=== PATIENT | female | born 1950 | race Caucasian/White ===

== ENCOUNTER 2016-12-01 11:05 | Observation (INO) ==
[2016-12-01] MEDS ORDERED: MORPHINE 2 MG/1 ML SYRINGE IV PRN (11:36)
[2016-12-01] MEDS ORDERED: ASPIRIN 325 MG TABLET PO STA (11:36)
[2016-12-01] MEDS ORDERED: NITROGLYCERIN SL 0.4 MG TABLET SL PRN (11:36)
[2016-12-01] MEDS ORDERED: ENOXAPARIN 100 MG/ML SYRINGE SUBCUT STA (11:36)
[2016-12-01] MEDS ORDERED: ALUM/MAG/SIMETH/LIDO VISC 1:1 30 ML BOTTLE PO STA (11:36)
[2016-12-01] MEDS ORDERED: ONDANSETRON 4 MG/2 ML VIAL IV PRN ×2 (11:36→15:53)
[2016-12-01] MEDS ORDERED: NITROGLYCERIN 2% OINT 1 INCH/GM PACK TOP STA (11:36)
[2016-12-01] MEDS ORDERED: ENOXAPARIN 120 MG/0.8 ML SYRINGE SUBCUT ONE (11:50)
[2016-12-01] MEDS ORDERED: NITROGLYCERIN 2% OINT 1 INCH/GM PACK TOP ONE (11:50)
--- NOTE | 2016-12-01 11:50 | Emergency Department Note ---
Siri Brown Brittany, am scribing for, and in the presence of, Get Osorio MD 11: 42. Jo Brown James D, MD, personally performed the services described in this documentation, ascribed by Mary Jo Horner in my presence, and it is both accurate and complete . Arrival - Arrival Chief Complaint: Chest Pain Stated Complaint: chest pain ED Nursing Triage Note: pain in center of chest that radiates into her back that started last night. pain is worse when she tries to lay down. reports she could feel some palpitations Mode of Arrival: Ambulatory Limitations: No Limitations Source: Patient, RN Notes Reviewed - History of Present Illness HPI Narrative: This is a 66 y/o whitefemale,who presents to the Ed with c/o CP which started last night. She reports the pain moves into her back. She reports the chest pain is worse when laying down. She states she has had palpations. She reports the CP is not associated with exertion. She denies any SOB, nausea, or diaphoresis, but notes a dry cough. She states her PCP is Dr. Patricia Salazar. Pt has no other complaints/pain in the ED at this time. Pt has a PMHx of HTN, low platelets, and dyslipidemia. Pt denies a surgical hx. Pt has a family medical hx of heart disease, HTN, and diabetes. Pt denies a social Hx. Onset (ago): hour(s) (Started last night) Consistency: constant Severity: moderate Allergies/Adverse Reactions: Allergies Allergy/AdvReac Type Severity Reaction Status Date / Time No Known Allergies Allergy Unverified 09/01/16 11:54 Home Medications: Home Medications Medication Instructions Recorded Confirmed Type Atenolol 25 mg PO DAILY 12/01/16 12/01/16 History Estradiol Tab [Estrace Tab] 2 mg PO DAILY 12/01/16 12/01/16 History Gemfibrozil [Lopid] 600 mg PO BID 12/01/16 12/01/16 History Loratadine Tab [Claritin Tab] 10 mg PO DAILY 12/01/16 12/01/16 History Omeprazole [Prilosec] 20 mg PO DAILY 12/01/16 12/01/16 History amLODIPine [Norvasc] 10 mg PO DAILY 03/27/17 03/27/17 History Review of System - Review of System 12 point system: reviewed and no additional remarkable complaints except as stated - Review of System Constitutional: Absent: diaphoresis Respiratory: Present: cough (Drry cough) Cardiovascular: Present: chest pain, palpitations, orthopnea Gastrointestinal: Absent: nausea Medical,Surgical,& Family Hx - Medical History Cardio: History of: Hypertension Endocrine: History of: Dyslipidemia Other: History of: Miscellaneous Medical Problems (low platelets) - Family History Family History: Reports;: Family Diabetes, Family Heart Disease, Family Hypertension, Family Stroke - Social History Smoking Status: Never smoker Exam Vital Signs: Vital Signs Temperature 97.5 F L 12/01/16 11:16 Pulse Rate 69 12/01/16 11:16 Respiratory Rate 18 12/01/16 11:16 Blood Pressure 161/96 12/01/16 11:16 O2 Sat by Pulse Oximetry 100 12/01/16 11:16 GENERAL: This is a well-nourished well-developed white female in no apparent distress. VITAL SIGNS: Reviewed HEENT: Head is atraumatic and normocephalic. Pupils are equal round react to light. Extraocular movements are intact. Oropharynx is benign with moist mucous membranes. NECK: Neck is soft and supple without tenderness. There are no masses. There is no lymphadenopathy. LUNGS: Lungs are clear to auscultation. Chest rises symmetrically. There is no chest wall tenderness. CV: Heart is regular rate and rhythm without murmurs rubs or gallops. ABDOMEN: Abdomen is soft, nontender to palpation. There are no abdominal abnormal masses palpated. There is no organomegaly. Bowel sounds are present and active. SKIN: Skin is warm and dry. No rash. EXTREMITIES: Patient has full range of motion without tenderness. There is no pedal edema. NEUROLOGIC: Awake alert and oriented 4. Cranial nerves II through XII are grossly intact. Motor is 5 over 5 in all extremities bilaterally. Course - Consultations Consultation #1: Discussed with Dr. Patricia Salazar. Patient will be admitted to her service. Time: 14:25 Results - Labs CBC & BMP: 12/01/16 11:39 12/01/16 11:39 Lab Results: I have reviewed the patients labs Labs: Laboratory Tests 12/01/16 11:39 Troponin I < 0.015 - EKG EKG results: interpreted by ERMD - Impressions EKG: Normal sinus rhythm with a rate of 69, low voltage QRS, normal ST-T waves, normal axis. - Diagnostic Findings Procedure: Chest x-ray: image reviewed by me (No cardiomegaly, no pleural effusions, no infiltrates) Disposition Clinical Impression: Chest pain, Essential hypertension Case discussed with: patient Disposition: Still a Patient Condition: Stable
[2016-12-01] MEDS ORDERED: ALUM/MAG/SIMETH/LIDO VISC 1:1 30 ML BOTTLE PO ONE (11:51)
[2016-12-01] MEDS ORDERED: ASPIRIN 325 MG TABLET ONE (11:51)
[2016-12-01 11:56] LABS: Basophils # 0.1 10*3/uL (0.0-0.2); Basophils % 0.5 % (0.0-0.8); Eosinophils # 0.2 10*3/uL (0.0-0.87); Hematocrit 40.2 VOL% (35.7-47.0); Hemoglobin 13.6 GM/DL (12.0-16.0); Immature Granulocytes % 0.5 %; Immature Granulocytes Absolute 0.05 #; Lymphocytes # 3.4 10*3/uL (1.4-4.0); Lymphocytes % 35.6 % (21.3-54.2); Mean Corpuscular HGB Conc 33.8 GM/DL (32-36); Mean Corpuscular Hemoglobin 29 PG (27-34); Mean Corpuscular Volume 85.7 FL (87-102); Mean Platelet Volume 11.2 FL (9.6-12.0); Monocytes # 0.7 10*3/uL (0.11-0.8); Monocytes % 7.2 % (1.7-12.7); Neutrophils # 5.2 10*3/uL (1.4-7.4); Neutrophils % 54.2 % (38.7-73.9); Platelet Count 139 T/CUMM (130-400); Red Blood Count 4.69 MC/CUMM (3.8-5.5); Red Cell Distribution Width 13.2 % (9.3-17.3); White Blood Count 9.6 T/CUMM (4-12)
--- NOTE | 2016-12-01 12:03 | XRay Report ---
XR chest 2V Indication: Chest pain. Chest 2 views: Comparison 02/20/2010. The heart size and mediastinal contour are normal. The lungs and pleural spaces are clear. Bones are unremarkable. Impression: Negative chest. PROCEDURE INTERPRETED AT [facility] DEPARTMENT OF RADIOLOGY Final Report Signed by: Song Mon M.D.
[2016-12-01 12:07] LABS: PT Patient Result 10.2 SECS; Partial Thromboplastin Time 27.3 SECS (0-40)
[2016-12-01 12:27] LABS: Alanine Aminotransferase 17 U/L (13-56); Albumin 3.6 G/DL (3.4-5.0); Alkaline Phosphatase 80 U/L (45-117); Aspartate Amino Transferase 12 U/L (0-37); Bilirubin,Total < 0.39 MG/DL (0.2-1.0); Blood Urea Nitrogen 15 MG/DL (7-18); Calcium 9.1 MG/DL (8.5-10.1); Glucose 99 MG/DL (74-106); Osmolality,Calculated 283.1 MOS/KG (273-304); Potassium 4.3 MMOL/L (3.5-5.1); Sodium 142 MMOL/L (136-145); Total Protein 7.2 G/DL (6.4-8.3)
[2016-12-01] MEDS ORDERED: INFLUENZA VIRUS VACCINE 0.5 ML SYRINGE IM ONE (16:01)
[2016-12-01] MEDS: SODIUM CHLORIDE 0.9% 1,000 ML IV SCH (17:31)
[2016-12-01] MEDS: ACETAMINOPHEN 325 MG TABLET PO PRN (17:34)
--- NOTE | 2016-12-01 18:32 | Internal Med History&Physical ---
Assessment and Plan (1) Acid indigestion Status: Acute Current Visit: Yes (2) Essential hypertension Status: Chronic Current Visit: Yes (3) Atypical chest pain Status: Acute Current Visit: Yes History of Present Illness Chief complaint: chest pain History of present illness: Ms. Rose is a 66 year old female with history of HTN, acid reflux, dyslipidemia, chronic leg pain, Vit D deficiency, thrombocytopenia, who presented to ER with acute low and mid sternal chest pain with radiation to her thoracic back that occurred acutely last night and continued until this morning. She had eaten some spicy sausage last night prior to the event. She has history of acid reflux. Will consult Dr. Chavira to further investigate. Her pain was significant enough to come to ER. However, she has significant family history of CAD to include a sibling status post CABG with 4 vessel disease. Her mother has history of PR. The patient has never had a cardiac catheterization, but she has had chest pain on a number of occasions, attributed to acid indigestion. Dr. Junior has been consulted to further evaluate. Also, the patient has complained of chronic leg pain. Multiple attempts of various meds have not helped. Vit D replacement has not helped. Home Medications Medication Instructions Recorded Confirmed Type Atenolol 25 mg PO DAILY 12/01/16 12/01/16 History Estradiol Tab [Estrace Tab] 2 mg PO DAILY 12/01/16 12/01/16 History Gemfibrozil [Lopid] 600 mg PO BID 12/01/16 12/01/16 History Loratadine Tab [Claritin Tab] 10 mg PO DAILY 12/01/16 12/01/16 History Omeprazole [Prilosec] 20 mg PO DAILY 12/01/16 12/01/16 History amLODIPine [Norvasc] 10 mg PO DAILY 12/01/16 12/01/16 History Allergies Allergy/AdvReac Type Severity Reaction Status Date / Time No Known Allergies Allergy Unverified 09/01/16 11:54 Medical,Surgical,& Family Hx - Medical History Cardio: History of: Hypertension Endocrine: History of: Dyslipidemia Gastrointestinal: History of: GERD Other: History of: Miscellaneous Medical Problems (thrombocytopenia) - Surgical History HEENT Surgeries: Surgical HX of: Tonsilectomy & Adenoidectomy Abdominal Surgeries: Surgical HX of: Cholecystectomy Reproductive Surgeries: Surgical HX of;: Hysterectomy Orthopedic Surgeries: Surgical HX of;: Orthopedic Surgery (ORIF left ankle) - Family History Family History: Reports;: Family Diabetes, Family Heart Disease, Family Hypertension, Family Stroke - Social History Smoking Status: Never smoker Frequency of Alcohol Use: None Type of Drug Use: None Marital Status: Lives With:: Spouse Functional capacity: independent ambulation - Cardiovascular Cardiovascular: Present: chest pain at rest, other (radiating to thoracic back) - Gastrointestinal Gastrointestinal: Present: abdominal pain (epigastric), dyspepsia Exam - Constitutional Vitals: Period Temp Pulse Resp BP Sys/Damon Pulse Ox Last 24 Hr 97.8 F 63-66 17-18 130-154/73-79 95-98 General appearance: no acute distress - Head Head exam: Present: normocephalic - Eye Eye exam: Present: EOMI - Respiratory Respiratory exam: Present: clear to auscultation bilaterally. Absent: rales, rhonchi, wheezes - Cardiovascular Cardiovascular exam: Present: regular rate and rhythm - GI/Abdominal GI/Abdominal exam: Present: normal bowel sounds, soft. Absent: tenderness - Extremities Exam Extremities exam: Absent: edema - Neurological Exam Neurological exam: Present: alert, oriented X3, CN II-XII intact - Psychiatric Psychiatric exam: Present: normal affect, normal mood - Skin Skin exam: Present: warm, dry Results - Labs CBC & BMP: 12/01/16 11:39 12/01/16 11:39 - EKG EKG shows: sinus rhythm - Diagnostic Findings Procedure: Chest x-ray: report reviewed by me (unremarkable)
[2016-12-01] MEDS: DOCUSATE SODIUM 100 MG CAPSULE PO SCH (20:59)
[2016-12-02] MEDS: SODIUM CHLORIDE 0.9% 1,000 ML IV SCH ×4 (01:15→23:59)
[2016-12-02 04:43] LABS: Calcium 8.9 MG/DL (8.5-10.1); Magnesium 2.3 MG/DL (1.8-2.4); Potassium 4.2 MMOL/L (3.5-5.1)
[2016-12-02 04:45] LABS: Troponin I Only < 0.015 NG/ML (0.00-0.045)
--- NOTE | 2016-12-02 05:59 | EKG Report ---
Stationary ECG Study [facility] ER Test Date: 12/01/2016 11:25:21 AM Pat Name: AYE DOCKERY Department: Room: 262 Gender: F Heater Helper: : 1950 Requested by: Ck Jara Order Number: [id number] Jennifer MD: CHARLY KOROMA Intervals [place] Rate: 69 P: 32 IL: 172 QRS: -10 QRSD: 106 T: 47 QT: 393 QTc: 413 Interpretive Statements SINUS RHYTHM LOW QRS VOLTAGE IN CHEST LEADS CONSISTENT WITH PULMONARY DISEASE Electronically Signed On 12-02-16 12:16:13 CDT by CHARLY KOROMA [email or web address]
--- NOTE | 2016-12-02 07:46 | EKG Report ---
Stationary ECG Study [facility] Test Date: 12/01/2016 6:06:03 PM Pat Name: AYE DOCKERY Department: Room: 262 Gender: F Adobe Developer: [place] : 1950 Requested by: Get Yi Order Number: [id number] Jennifer MD: CHARLY KOROMA Intervals [place] Rate: 70 P: 151 DC: 177 QRS: 208 QRSD: 105 T: 130 QT: 404 QTc: 425 Interpretive Statements SINUS RHYTHM ARM LEADS REVERSED ATYPICAL ECG Electronically Signed On 12-02-16 12:23:11 CDT by CHARLY KOROMA [email or web address]
--- NOTE | 2016-12-02 07:48 | Cardiology Consult Note ---
<Deana Rodriguez - Last Filed: 12/02/16 07:48> Assessment and Plan - Time spent with patient Time spent with patient: Greater than 30 minutes (1) Dyslipidemia Status: Chronic Assessment and plan: See plan of care listed below Current Visit: Yes (2) Obesity Status: Chronic Assessment and plan: See plan of care listed below Current Visit: Yes (3) Family history of premature CAD Status: Chronic Assessment and plan: See plan of care listed below Current Visit: Yes (4) Chest pain Status: Acute Assessment and plan: See plan of care listed below Current Visit: Yes (5) Essential hypertension Status: Chronic Assessment and plan: See plan of care listed below Current Visit: Yes History of Present Illness - Data of Consult Patient: new to practice Consult date: 12/02/16 Requesting Physician: Patricia Salazar Primary care physician: Patricia Salazar - Consult Narrative Reason for consult: chest pain, family history of premature CAD History of present illness: Ms. Rose is a 66 year old female never previously followed by cardiology. Risk factors include: Hypertension, dyslipidemia, obesity, family history of premature coronary artery disease. Patient was in her usual state of health until Thursday evening around 8 PM. She had been eating sausage when, approximately 5 minutes later, she began to experience a sharp chest pain in the mid, lower chest area which radiated through her chest to her right shoulder blade, throat. She felt as if she want to belch. This was not associated with shortness of breath, chest pain, nausea or vomiting. She had never experienced this type of discomfort before. It was consistent throughout the night and therefore she felt as if she should be evaluated in the emergency department at [facility]. She obtained relief when she received a GI cocktail. It has not reoccurred. She read the discomfort as a 7 on a scale of 1-10. She is currently chest pain- free. Cardiac biomarkers negative, EKG is unremarkable. 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 She can usually perform these activities without chest pain, heaviness, tightness or shortness of breath. She had a brother and sister who experienced her initial diagnosis of CAD in their late 40s and early 50s. She has never had a stress test, cardiac catheterization or cardiac workup. At one point, several years ago, she was scheduled for stress testing. However, she was found to have cholelithiasis prior to the stress test and never completed stress testing. Dr. Chavira has been consulted and she tells me she is n.p.o. She has had an EGD many years ago and received favorable results. At this point, I will add a d-dimer in a fasting lipid profile to her labs this morning. Will discuss with Dr. Glenda Junior. At some point, possibly outpatient, patient will need stress testing with such a significant family history of premature coronary artery disease. Patient does snore per but he does not hear abnormal sounds or gasping for air, holding of her breath. Malampati Airway Class III, neck circumference > 44cm. May eventually need outpatient sleep study. ASSESSMENT/PLAN: 1. CHEST PAIN -cardiac biomarkers are negative, EKG unremarkable. Eventually , patient would benefit from stress testing. Add d-dimer to lab draw this morning. 2. HYPERTENSION -patient reports good control. Will adjust medications accordingly during the hospital stay 3. DYSLIPIDEMIA -ordering fasting lipid profile this morning. 4. FAMILY HISTORY OF PREMATURE CAD -continue current plan of care 5. OBESITY - dietary counseling prior to discharge. CC: Patricia Salazar, DO - Home Medications and Allergies Home Medications: Home Medications Medication Instructions Recorded Confirmed Type Atenolol 25 mg PO DAILY 12/01/16 12/01/16 History Estradiol Tab [Estrace Tab] 2 mg PO DAILY 12/01/16 12/01/16 History Gemfibrozil [Lopid] 600 mg PO BID 12/01/16 12/01/16 History Loratadine Tab [Claritin Tab] 10 mg PO DAILY 12/01/16 12/01/16 History Omeprazole [Prilosec] 20 mg PO DAILY 12/01/16 12/01/16 History amLODIPine [Norvasc] 10 mg PO DAILY 12/01/16 12/01/16 History Allergies/Adverse Reactions: Allergies Allergy/AdvReac Type Severity Reaction Status Date / Time No Known Allergies Allergy Unverified 09/01/16 11:54 Review of systems: REVIEW OF SYSTEMS: - Constitutional Constitutional: Present: Fatigue. Absent: syncope, anorexia, night sweats - EENT Eyes: Absent: blurry vision, loss of vision, diplopia Ears: Absent: decreased hearing, ear pain, ear discharge - Cardiovascular Cardiovascular: Denies chest pain with exertion, dyspnea on exertion, edema, palpitations. Absent: chest pain with deep breath, claudication - Respiratory Respiratory: Denies FREIRE, cough. Absent: wheezing, hemoptysis, change in phlegm color - Gastrointestinal Gastrointestinal: Present: constipation. Absent: adbominal pain, hematemesis , hematochezia, melena, change in bowel habits, nausea - Genitourinary Genitourinary: Absent: difficulty urinating, dysuria, urinary hesitancy, flank pain - Musculoskeletal Musculoskeletal: Present: back pain Absent: joint swelling, muscle cramps, muscle weakness - Neurological Neurological: Present: normal gait without frequent falls. Absent: dizziness, hemiparesis - Psychiatric Psychiatric: Absent: anxiety, depression, difficulty concentrating - Endocrine Endocrine: Present: fatigue. Absent: cold intolerance, heat intolerance, polyuria, polyphagia, polydipsia - Hematologic/Lymphatic Hematologic/Lymphatic: Present: easy bruising. Absent: easy bleeding -Integumentary Integumentary: Absent: lesions, rashes, skin breakdown Medical,Surgical,& Family Hx - Medical History Cardio: History of: Hypertension No history of: CAD, VA, Cardiovascular Problems Endocrine: History of: Dyslipidemia Gastrointestinal: History of: GERD Other: History of: Miscellaneous Medical Problems (thrombocytopenia) - Surgical History HEENT Surgeries: Surgical HX of: Tonsilectomy & Adenoidectomy Abdominal Surgeries: Surgical HX of: Cholecystectomy Reproductive Surgeries: Surgical HX of;: Hysterectomy Orthopedic Surgeries: Surgical HX of;: Orthopedic Surgery (ORIF left ankle) - Family History Family History: Reports;: Family Diabetes, Family Heart Disease, Family Hypertension, Family Stroke - Social History Smoking Status: Never smoker Frequency of Alcohol Use: None Type of Drug Use: None Marital Status: Lives With:: Spouse Functional capacity: independent ambulation Physical Examination Vital Signs Temp Pulse Resp BP Pulse Ox 97.5 F L 69 18 161/96 100 12/01/16 11:16 12/01/16 11:16 12/01/16 11:16 12/01/16 11:16 12/01/16 11:16 General: [Appears well with no apparent distress.] [Pleasant and cooperative. ] [Appears comfortable.] HEENT: [PERRL, normocephalic, atraumatic. Mucous membranes moist. No jaundice noted. Conjunctiva moist and clear, sclerae anicteric] Neck: No JVD/HJR, no thyromegaly or lymphadenopathy noted. No carotid bruit appreciated Cardiac: [Regular rate and rhythm.] [No murmur rub or gallop.] Lungs: [Clear to auscultation without accessory muscle use to assist the respiratory pattern.] Not requiring oxygen Abdomen: Soft, bowel sounds normoactive. Nontender and nondistended. No abdominal bruit or thrill noted. No masses noted. Musculoskeletal: No fluid collection. Decreased range of motion is noted. Extremities: No clubbing, cyanosis noted. [ No edema noted.] Upper extremity pulses 2+. Lower extremity pulses 2+. Capillary refill less than 3 seconds. Skin: No unusual lesions or rashes. No skin breakdown appreciated. Neuro: Awake, alert and oriented 3. Moves all extremities well without hemiparesis or paralysis. No essential tremor is appreciated. Result/EKG - Labs CBC & BMP: 12/01/16 11:39 12/02/16 03:18 Lab Results: I have reviewed the past 24 hour labs Labs: Laboratory Results - last 24 hr 12/01/16 12/01/16 12/02/16 16:21 19:07 03:18 Sodium 143 Potassium 4.2 Chloride 108 H Carbon Dioxide 26 Anion Gap 13.2 BUN 15 Creatinine 0.80 GFR Calculation 97 BUN/Creatinine Ratio 18.00 Glucose 101 Calculated Osmolality 285.0 Calcium 8.9 Magnesium 2.3 Total Creatine Kinase CK-MB (CK-2) Troponin I < 0.015 < 0.015 12/02/16 03:18 Sodium Potassium Chloride Carbon Dioxide Anion Gap BUN Creatinine GFR Calculation BUN/Creatinine Ratio Glucose Calculated Osmolality Calcium Magnesium Total Creatine Kinase 56 CK-MB (CK-2) < 1.0 Troponin I < 0.015 - Diagnostic Findings Procedure: Chest x-ray: report reviewed by me - EKG EKG results: interpreted by me EKG shows: sinus rhythm <Glenda Junior - Last Filed: 12/02/16 16:01> History of Present Illness - Consult Narrative History of present illness: I have personally interviewed and evaluated the patient, reviewed the chart and discussed medical decision-making with Practitioner Jennifer. I have read this note and agree with her documentation here in. The patient's acute presentation is likely related to her sausage event. We will follow-up with EGD. As an outpatient she should be further risk stratified given her risk factors with stress testing and echocardiogram, we can do this as an outpatient in the clinic. Additionally she does have some palpitations that can be symptomatic but appear to be variable and infrequent. We will follow these. CC: Patricia Salazar, DO Physical Examination Vital Signs Temp Pulse Resp BP Pulse Ox 97.5 F L 69 18 161/96 100 12/01/16 11:16 12/01/16 11:16 12/01/16 11:16 12/01/16 11:16 12/01/16 11:16 Result/EKG - Labs CBC & BMP: 12/01/16 11:39 12/02/16 03:18 Labs: Laboratory Results - last 24 hr 12/01/16 12/01/16 12/02/16 16:21 19:07 03:18 D-Dimer, Quantitative Sodium 143 Potassium 4.2 Chloride 108 H Carbon Dioxide 26 Anion Gap 13.2 BUN 15 Creatinine 0.80 GFR Calculation 97 BUN/Creatinine Ratio 18.00 Glucose 101 Calculated Osmolality 285.0 Calcium 8.9 Magnesium 2.3 Total Creatine Kinase CK-MB (CK-2) Troponin I < 0.015 < 0.015 Triglycerides Cholesterol LDL Cholesterol VLDL Cholesterol HDL Cholesterol Heart Disease Risk Ratio 12/02/16 12/02/16 12/02/16 03:18 08:09 08:09 D-Dimer, Quantitative <= 0.5 Sodium Potassium Chloride Carbon Dioxide Anion Gap BUN Creatinine GFR Calculation BUN/Creatinine Ratio Glucose Calculated Osmolality Calcium Magnesium Total Creatine Kinase 56 CK-MB (CK-2) < 1.0 Troponin I < 0.015 Triglycerides 188 H Cholesterol 202 H LDL Cholesterol 126.0 VLDL Cholesterol 37.6 HDL Cholesterol 53 Heart Disease Risk Ratio 3.81
[2016-12-02] MEDS: ESTRADIOL 2 MG TABLET PO SCH (08:49)
[2016-12-02] MEDS: DOCUSATE SODIUM 100 MG CAPSULE PO SCH ×2 (08:50→20:35)
[2016-12-02] MEDS: PANTOPRAZOLE 40 MG TABLET PO SCH (08:50)
[2016-12-02] MEDS: LORATADINE 10 MG TABLET PO SCH (08:50)
[2016-12-02] MEDS: amLODIPine 10 MG TABLET PO SCH (08:50)
[2016-12-02] MEDS: ATENOLOL 25 MG TABLET PO SCH (08:50)
[2016-12-02 08:51] LABS: Risk Ratio 3.81; VLDL CHOLESTEROL 37.6 MG/DL
--- NOTE | 2016-12-02 09:26 | Gastrointestinal Consult Note ---
Assessment and Plan (1) Atypical chest pain Status: Acute Assessment and plan: 12/02-sudden onset of severe, stabbing chest pain that radiated to the back. History of GERD, mostly controlled with Prilosec. No history of peptic ulcer disease last EGD 10-15 years ago with negative findings. Plan for tentative EGD tomorrow. Plan an addendum to followed by Dr. Chavira Current Visit: Yes History of Present Illness Chief complaint: Atypical chest pain History of present illness: Ms. Rose is a 66 year old female who presented to the ER with onset of chest pain. Patient states that she was in her usual state of health until Thursday night when she had a sudden onset of chest pain. Patient states the pain was sharp and severe in nature. Radiated across her chest and was associated with nausea. She denies any radiation of pain other than to her back, denies vomiting, and denies shortness of breath, palpitations are diaphoresis. States she has never had pain like this in the past. Denies coffee-ground emesis or hematemesis. States that the pain was precipitated by a meal which included spicy sausage. She has a history of reflux however states that she takes Prilosec fairly regularly and this does control her symptoms. Reports taking Pepto-Bismol Thursday night when the pain would not subside. States the pain became so severe that she presented to the emergency room yesterday morning. She has a significant family history of coronary artery disease with a personal history of hypertension, dyslipidemia, and thrombocytopenia. Patient states she had a cholecystectomy done 15 years ago due to gallstones. Reports having an EGD done at that time with negative findings. Denies history of peptic ulcer disease. States this pain was nothing like the pain she had at the time of her cholecystectomy. Denies melena or hematochezia. Denies NSAID use. Denies dysphagia. Denies weight loss. Patient has been seen in consultation by Dr. Handley and to his have an outpatient cardiac workup upon discharge. Labs are unremarkable at this time. Home Medications Medication Instructions Recorded Confirmed Type Atenolol 25 mg PO DAILY 12/01/16 12/01/16 History Estradiol Tab [Estrace Tab] 2 mg PO DAILY 12/01/16 12/01/16 History Gemfibrozil [Lopid] 600 mg PO BID 12/01/16 12/01/16 History Loratadine Tab [Claritin Tab] 10 mg PO DAILY 12/01/16 12/01/16 History Omeprazole [Prilosec] 20 mg PO DAILY 12/01/16 12/01/16 History amLODIPine [Norvasc] 10 mg PO DAILY 12/01/16 12/01/16 History Allergies Allergy/AdvReac Type Severity Reaction Status Date / Time No Known Allergies Allergy Unverified 09/01/16 11:54 Medical,Surgical,& Family Hx - Medical History Cardio: History of: Hypertension No history of: CAD, LA, Cardiovascular Problems Endocrine: History of: Dyslipidemia Gastrointestinal: History of: GERD Other: History of: Miscellaneous Medical Problems (thrombocytopenia) - Surgical History HEENT Surgeries: Surgical HX of: Tonsilectomy & Adenoidectomy Abdominal Surgeries: Surgical HX of: Cholecystectomy Reproductive Surgeries: Surgical HX of;: Hysterectomy Orthopedic Surgeries: Surgical HX of;: Orthopedic Surgery (ORIF left ankle) - Family History Family History: Reports;: Family Diabetes, Family Heart Disease, Family Hypertension, Family Stroke - Social History Smoking Status: Never smoker Frequency of Alcohol Use: None Type of Drug Use: None 12 point system: reviewed and no additional remarkable complaints except as stated - Constitutional Constitutional: Present: as per HPI - EENT Eyes: Present: as per HPI Ears: Present: as per HPI Nose, mouth and throat: Present: as per HPI - Cardiovascular Cardiovascular: Present: as per HPI, chest pain at rest, other (Radiation of pain to her back) - Respiratory Respiratory: Present: as per HPI - Gastrointestinal Gastrointestinal: Present: as per HPI, heartburn, nausea - Genitourinary Genitourinary: Present: as per HPI - Musculoskeletal Musculoskeletal: Present: as per HPI - Neurological Neurological: Present: as per HPI - Psychiatric Psychiatric: Present: as per HPI - Endocrine Endocrine: Present: as per HPI - Hematologic/Lymphatic Hematologic/Lymphatic: Present: as per HPI Exam - Constitutional Vitals: Period Temp Pulse Resp BP Sys/Damon Pulse Ox Last 24 Hr 96.4 F-97.8 F 63-73 16-20 115-154/54-79 95-98 General appearance: no acute distress, over weight - Head Head exam: Present: normal inspection, normocephalic - Eye Eye exam: Present: other (Lids and conjunctivae unremarkable). Absent: scleral icterus - ENT ENT exam: Present: normal exam, normal oropharynx - Neck Neck exam: Present: normal inspection - Respiratory Respiratory exam: Present: clear to auscultation bilaterally. Absent: rales, rhonchi, wheezes - Cardiovascular Cardiovascular exam: Present: regular rate and rhythm. Absent: diastolic murmur , JVD, systolic murmur - GI/Abdominal GI/Abdominal exam: Present: normal bowel sounds, soft. Absent: ascites, distended, mass, organomegaly, tenderness - Extremities Exam Extremities exam: Present: normal inspection, full ROM - Back Exam Back exam: Present: normal inspection - Neurological Exam Neurological exam: Present: alert, oriented X3 - Psychiatric Psychiatric exam: Present: normal affect, normal mood - Skin Skin exam: Present: normal color, warm, dry Results - Labs CBC & BMP: 12/01/16 11:39 12/02/16 03:18 Lab Results: I have reviewed the past 24 hour labs
--- NOTE | 2016-12-02 18:52 | Internal Med Progress Note ---
Assessment and Plan (1) Acid indigestion Status: Resolved Current Visit: Yes (2) Essential hypertension Status: Chronic Current Visit: Yes (3) Atypical chest pain Status: Resolved Current Visit: Yes Internal Medicine - PN: Subj Interval history: Ms. Rose is a 66 year old female with history of HTN, acid reflux, dyslipidemia, chronic leg pain, Vit D deficiency, thrombocytopenia, who presented to ER with acute low and mid sternal chest pain with radiation to her thoracic back that occurred acutely last night and continued until this morning. She had eaten some spicy sausage last night prior to the event. She has history of acid reflux. Will consult Dr. Chavira to further investigate. Her pain was significant enough to come to ER. She will have EGD in the morning. Exam (Progress Note) - Constitutional Vitals: Period Temp Pulse Resp BP Sys/Damon Pulse Ox Last 24 Hr 96.4 F-97.1 F 61-73 16-20 115-146/54-72 95-98 General appearance: no acute distress - Respiratory Respiratory exam: Present: clear to auscultation bilaterally - Cardiovascular Cardiovascular exam: Present: regular rate and rhythm - GI/Abdominal GI/Abdominal exam: Present: soft. Absent: tenderness - Extremities Exam Extremities exam: Absent: edema - Neurological Exam Neurological exam: Present: alert, oriented X3 - Psychiatric Psychiatric exam: Present: normal mood - Skin Skin exam: Present: warm, dry Results - Labs CBC & BMP: 12/01/16 11:39 12/02/16 03:18
[2016-12-03] MEDS: SODIUM CHLORIDE 0.9% 1,000 ML IV SCH ×3 (02:09→16:28)
[2016-12-03 06:35] LABS: Calcium 7.8 MG/DL (8.5-10.1); Osmolality,Calculated 291.6 MOS/KG (273-304); Potassium 4.1 MMOL/L (3.5-5.1)
[2016-12-03] MEDS ORDERED: LIDOCAINE 2% 5 ML VIAL ONE (13:09)
[2016-12-03] MEDS ORDERED: PROPOFOL 200 MG/20 ML VIAL IV ONE (13:09)
--- NOTE | 2016-12-03 13:09 | History and Physical Update ---
History and Physical Update - History and Physical H&P was reviewed, the patient examined and there: are no changes in the patients condition since last H&P was completed.
--- NOTE | 2016-12-03 13:14 | Operative Note ---
Date of procedure: 12/03/16 Pre-op diagnosis: Noncardiac chest pain, dyspepsia Procedure: Procedure: Esophagogastroduodenoscopy Brief clinical abstract: Patient is a 66-year-old female who has had chronic dyspepsia and indigestion symptoms. She is admitted with sternal chest pain which is different from her usual discomfort. Cardiac evaluation has been negative. She denies difficulty swallowing, gross GI bleeding, or weight loss. Indication for procedure: Dyspepsia, atypical chest pain Endoscopic findings:[After informed consent was obtained, the patient was placed in the left lateral decubitus position. The gastroscope was inserted in the upper esophagus under direct vision with no resistance encountered. Esophageal mucosa appeared normal with some, just probably demarcated above a small 1 cm hiatal hernia. The endoscope was advanced in the stomach which was carefully examined including retroflexed view of the cardia and fundus with no other abnormality seen. The pyloric channel, duodenal bulb, second and third portion of the duodenum were normal. Endoscope was removed and patient appeared to tolerate the procedure well. Impression: Small hiatal hernia-otherwise normal EGD Recommendations: Would keep on Protonix 40 mg daily replacing omeprazole which she had been taking prior to admission. Anesthesia: MAC Surgeon / Physician: Deven Chavira Estimated blood loss: none Specimens: none sent Condition: stable Disposition: post procedure unit Results - Labs CBC & BMP: 12/01/16 11:39 12/03/16 04:03 Discharge Plan - Discharge Medications No Action Gemfibrozil [Lopid] 600 mg PO BID Estradiol Tab [Estrace Tab] 2 mg PO DAILY Atenolol 25 mg PO DAILY Omeprazole [Prilosec] 20 mg PO DAILY Loratadine Tab [Claritin Tab] 10 mg PO DAILY amLODIPine [Norvasc] 10 mg PO DAILY - Follow Up or Referral - Forms/Instructions
--- NOTE | 2016-12-03 13:22 | Anesthesia ---
Anesthesia Post OP - Post Ansesthetic Evaluation Patient seen in post op: Yes Resp: within normal limits CV: within normal limits Mental: within normal limits Temp: within normal limits [id number]: within normal limits Nausea and Vomiting: within normal limits Pain: within normal limits
--- NOTE | 2016-12-03 13:24 | Cardiology Progress Note ---
<Deana Rodriguez E - Last Filed: 12/03/16 13:28> Assessment and Plan - Time spent with patient Time spent with patient: Greater than 30 minutes (1) Dyslipidemia Status: Chronic Assessment and plan: See plan of care listed below Current Visit: Yes (2) Obesity Status: Chronic Assessment and plan: See plan of care listed below Current Visit: Yes (3) Family history of premature CAD Status: Chronic Assessment and plan: See plan of care listed below Current Visit: Yes (4) Chest pain Status: Acute Assessment and plan: See plan of care listed below Current Visit: Yes (5) Essential hypertension Status: Chronic Assessment and plan: See plan of care listed below Current Visit: Yes Cardiology - PN: Subj Interval history: Ms. Rose is a 66 year old female never previously followed by cardiology. Risk factors include: Hypertension, dyslipidemia, obesity, family history of premature coronary artery disease. Patient was in her usual state of health until Thursday evening around 8 PM when she began to experience chest discomfort. She has been hospitalized in our telemetry unit. Labs have ruled her out for myocardial infarction. She is n.p.o. for EGD today. Patient has not had recurrent chest pain since arrival. We discussed the possibility of outpatient stress testing and she is agreeable to undergo this procedure. I will go ahead and arrange for her to have stress test in 1-[address] Glenda Junior to read. I will also give her an appointment to see Dr. Junior in approximately 1 week following the stress test. ASSESSMENT/PLAN: 1. CHEST PAIN -cardiac biomarkers are negative, EKG unremarkable. Will schedule for outpatient stress test. 2. HYPERTENSION -adequately controlled. 3. DYSLIPIDEMIA - continue lipid lowering agent. 4. FAMILY HISTORY OF PREMATURE CAD -continue current plan of care 5. CLASS III OBESITY - dietary counseling prior to discharge. Exam (Progress Note) - Constitutional Vitals: Period Temp Pulse Resp BP Sys/Damon Pulse Ox Last 24 Hr 96.3 F-97.7 F 64-81 16-20 113-152/56-83 95-100 Exam: General: [Appears well with no apparent distress.] [Pleasant and cooperative. ] [Appears comfortable.] HEENT: [PERRL, normocephalic, atraumatic. Mucous membranes moist. No jaundice noted. Conjunctiva moist and clear, sclerae anicteric] Neck: No JVD/HJR, no thyromegaly or lymphadenopathy noted. No carotid bruit appreciated Cardiac: [Regular rate and rhythm.] [No murmur rub or gallop.] Lungs: [Clear to auscultation without accessory muscle use to assist the respiratory pattern.] Not requiring oxygen Abdomen: Soft, bowel sounds normoactive. Nontender and nondistended. No abdominal bruit or thrill noted. No masses noted. Musculoskeletal: No fluid collection. Decreased range of motion is noted. Extremities: No clubbing, cyanosis noted. [ No edema noted.] Upper extremity pulses 2+. Lower extremity pulses 2+. Capillary refill less than 3 seconds. Skin: No unusual lesions or rashes. No skin breakdown appreciated. Neuro: Awake, alert and oriented 3. Moves all extremities well without hemiparesis or paralysis. No essential tremor is appreciated. Result/EKG - Labs CBC & BMP: 12/01/16 11:39 12/03/16 04:03 Lab Results: I have reviewed the past 24 hour labs Labs: Laboratory Results - last 24 hr 12/03/16 04:03 Sodium 146 H Potassium 4.1 Chloride 110 H Carbon Dioxide 27 Anion Gap 13.1 BUN 14 Creatinine 0.80 GFR Calculation 97 BUN/Creatinine Ratio 17.00 Glucose 124 H Calculated Osmolality 291.6 Calcium 7.8 L - Diagnostic Findings Procedure: Chest x-ray: report reviewed by me - EKG EKG results: interpreted by nm EKG shows: sinus rhythm Specialty Discharge - Follow Up or Referrals Follow up with: Glenda Junior MD [Physician] - (Nuclear stress test [facility] 1-2 weeks RE: chest pain, SOB. Hold Atenolol morning of procedure. Please arrange for follow-up appointment with Dr. Junior 1 week after stress testing. SCHEDULED FOR 12/10/16 AT 12:45 AT [facility] FOR STRESS TEST APPT. WITH DR. JUNIOR AT [facility] ON 12/15/16 AT 9:40) <Glenda Junior - Last Filed: 12/03/16 14:39> Cardiology - PN: Subj Interval history: I have personally interviewed and evaluated the patient, reviewed the chart and discussed medical decision-making with Practitioner Jennifer. I have read this note and agree with her documentation here in. She is now status post EGD which overall was unremarkable. She has not been ambulating the halls. I recommend that she ambulates the halls prior to discharge. If she is able to do these minimal amount of activities without chest discomfort, she should be stable for discharge and we can set her up her outpatient stress testing and echocardiogram. Exam (Progress Note) - Constitutional Vitals: Period Temp Pulse Resp BP Sys/Damon Pulse Ox Last 24 Hr 96.3 F-97.7 F 64-81 14-20 112-152/53-83 95-100 Result/EKG - Labs CBC & BMP: 12/01/16 11:39 12/03/16 04:03 Labs: Laboratory Results - last 24 hr 12/03/16 04:03 Sodium 146 H Potassium 4.1 Chloride 110 H Carbon Dioxide 27 Anion Gap 13.1 BUN 14 Creatinine 0.80 GFR Calculation 97 BUN/Creatinine Ratio 17.00 Glucose 124 H Calculated Osmolality 291.6 Calcium 7.8 L
[2016-12-03] MEDS: ESTRADIOL 2 MG TABLET PO SCH (14:15)
[2016-12-03] MEDS: LORATADINE 10 MG TABLET PO SCH (14:15)
[2016-12-03] MEDS: amLODIPine 10 MG TABLET PO SCH (14:15)
[2016-12-03] MEDS: PANTOPRAZOLE 40 MG TABLET PO SCH (14:15)
[2016-12-03] MEDS: DOCUSATE SODIUM 100 MG CAPSULE PO SCH (14:15)
[2016-12-03] MEDS: ATENOLOL 25 MG TABLET PO SCH (14:15)
[2016-12-03] MEDS: ACETAMINOPHEN 325 MG TABLET PO PRN (15:47)
--- NOTE | 2016-12-03 18:34 | Discharge Summary ---
Hospital Course - Hospital Course Hospital Course: Ms. Rose is a 66 year old female with history of HTN, acid reflux, dyslipidemia, chronic leg pain, Vit D deficiency, thrombocytopenia, who presented to ER with acute low and mid sternal chest pain with radiation to her thoracic back that occurred acutely last night and continued until this morning. She had eaten some spicy sausage last night prior to the event. She has history of acid reflux. Will consult Dr. Chavira to further investigate. Her pain was significant enough to come to ER. EGD showed small hiatal hernia. She is feeling better and understands to modify diet. She will have outpatient cardiac stress testing and further workup pending results. Will discharge today. Diagnosis - Discharge Diagnosis (1) Acid indigestion Status: Resolved (2) Essential hypertension Status: Chronic (3) Atypical chest pain Status: Resolved Specialty Discharge - Follow Up or Referrals Follow up with: Glenda Junior MD [Physician] - (Nuclear stress test [facility] 1-2 weeks RE: chest pain, SOB. Hold Atenolol morning of procedure. Please arrange for follow-up appointment with Dr. Junior 1 week after stress testing. SCHEDULED FOR 12/10/16 AT 12:45 AT [facility] FOR STRESS TEST APPT. WITH DR. JUNIOR AT [facility] ON 12/15/16 AT 9:40) Discharge Plan - Discharge Data Disposition: Disch To Home/Self Care Condition at Discharge: Stable Discharge Diet: low fat, low cholesterol Activity: resume usual activities as tolerated, increase activity as tolerated - Discharge Medications New Acetaminophen Tab [Tylenol Tab] 650 mg PO Q6H PRN #0 tablet PRN Reason: Fever > 100.4 Or Headache Docusate Sodium Cap [Colace Cap] 100 mg PO BID capsule Pantoprazole Tab [Protonix Tab] 40 mg PO DAILY #30 tablet Continue Estradiol Tab [Estrace Tab] 2 mg PO DAILY Atenolol 25 mg PO DAILY Loratadine Tab [Claritin Tab] 10 mg PO DAILY amLODIPine [Norvasc] 10 mg PO DAILY Changed Gemfibrozil [Lopid] 600 mg PO AC BREAKFAST #30 Discontinued Omeprazole [Prilosec] 20 mg PO DAILY - Follow Up or Referral Follow Up: Glenda Junior MD [Physician] - (Nuclear stress test [facility] 1-2 weeks RE: chest pain, SOB. Hold Atenolol morning of procedure. Please arrange for follow-up appointment with Dr. Junior 1 week after stress testing. SCHEDULED FOR 12/10/16 AT 12:45 AT [facility] FOR STRESS TEST APPT. WITH DR. JUNIOR AT [facility] ON 12/15/16 AT 9:40) Patricia Salazar DO [Physician] - - Forms/Instructions Instructions: Chest Pain (DC) Additional Discharge Instructions: Follow up for stress test per appointment set. Follow up with Dr. Yair Salazar in clinic within 4-6 weeks. Have decreased lopid (gemfibrozil) to once daily. Exam - Constitutional Vitals: Period Temp Pulse Resp BP Sys/Damon Pulse Ox Last 24 Hr 96.3 F-97.7 F 64-81 14-20 112-152/53-83 95-100 Exam: General appearance: no acute distress - Respiratory Respiratory exam: Present: clear to auscultation bilaterally - Cardiovascular Cardiovascular exam: Present: regular rate and rhythm - GI/Abdominal GI/Abdominal exam: Present: soft. Absent: tenderness - Extremities Exam Extremities exam: Absent: edema - Neurological Exam Neurological exam: Present: alert, oriented X3 - Psychiatric Psychiatric exam: Present: normal mood - Skin Skin exam: Present: warm, dry Vitals reviewed. Discharge Results Labs on day of discharge: Labs from last 24 hours 12/03/16 04:03 Sodium 146 H Potassium 4.1 Chloride 110 H Carbon Dioxide 27 Anion Gap 13.1 BUN 14 Creatinine 0.80 GFR Calculation 97 BUN/Creatinine Ratio 17.00 Glucose 124 H Calculated Osmolality 291.6 Calcium 7.8 L DS: Provider Date of admission: 12/01/16 14:25 Primary care physician: . No PCP Attending physician on admission: Patricia Salazar DO Consults: 12/01/16 15:53 Consult to Case Mgmt/Social Srvs [CONS] Routine Reason for Case Mgmt/Social Srvs: Discharge Planning Consult to Physician [CONS] Routine Comment: chest pain Consulting Provider: Glenda Junior Consult to Specialist Group: Cardiology Person Notified: Deana Rodriguez Date Notified: 12/01/16 Time Notified: 16:25 Consult Notification Comment: will see patient in AM SPOKE WITH YESICA AT 0825 OF CONSULT ON 12/01/16 16:08 Consult to Pharmacy [CONS] Routine Reason for Pharmacy Consult: Adjust Meds Renal Funct 12/01/16 18:32 Consult to Physician [CONS] Routine Comment: epigastric pain Consulting Provider: Deven Chavira Discharging clinician: Patricia Salazar DO Expected date of discharge: 12/03/16
[2016-12-03 20:34] VITALS: BP 134/64
== END 2016-12-03 20:30 | disposition home or self-care (01) ==
LOC: N.ED 11:05 → N.EDINP 11:05 → N.TELES 15:25
PROVIDERS: ADMIT Internal Medicine; ATTEND Internal Medicine

== ENCOUNTER 2021-10-01 05:34 | Inpatient (IN) ==
[2021-10-01] MEDS ORDERED: LACTATED RINGERS 1,000 ML IV SCH (06:00)
[2021-10-01] MEDS ORDERED: ceFAZolin 2,000 MG/50 ML DUPLEX IV ONE (06:00)
[2021-10-01] MEDS ORDERED: VANCOMYCIN INJ 1,000 MG in SODIUM CHLORIDE 0.9% 250 ML IV ONE (06:00)
[2021-10-01 06:37] LABS: INR 0.9; PT Patient Result 10.3 SECS (10.5-12.0); Partial Thromboplastin Time 24.8 SECS (23.8-32.1)
[2021-10-01] MEDS ORDERED: BACITRACIN OINT 0.9 GM PACK TOP ONE (06:43)
[2021-10-01] MEDS ORDERED: ROPIVACAINE 0.5% 30 ML VIAL ONE (06:43)
[2021-10-01] MEDS ORDERED: LIDOCAINE 2% 5 ML VIAL ONE ×2 (06:43→06:44)
[2021-10-01] MEDS ORDERED: DEXAMETHASONE 4 MG/1 ML VIAL ONE ×2 (06:43→07:40)
[2021-10-01] MEDS ORDERED: ROCURONIUM 50 MG/5 ML VIAL IV ONE (06:44)
[2021-10-01] MEDS ORDERED: propofoL 200 MG/20 ML VIAL IV ONE ×2 (06:44→08:03)
[2021-10-01] MEDS ORDERED: fentaNYL 100 MCG/2 ML VIAL ONE ×3 (06:44→08:41)
[2021-10-01] MEDS ORDERED: GABAPENTIN 400 MG CAPSULE ONE (06:45)
[2021-10-01] MEDS ORDERED: MIDAZOLAM 2 MG/2 ML VIAL ONE ×2 (06:45→07:06)
[2021-10-01] MEDS ORDERED: ACETAMINOPHEN 500 MG TABLET ONE (06:45)
[2021-10-01] MEDS ORDERED: KETAMINE 500 MG/10 ML VIAL ONE (06:46)
[2021-10-01] MEDS ORDERED: ACETAMINOPHEN 500 MG TABLET PO STA (06:47)
[2021-10-01] MEDS ORDERED: GABAPENTIN 400 MG CAPSULE PO ONE (06:47)
[2021-10-01] MEDS ORDERED: MAGNESIUM HYDROXIDE SUSP 30 ML UDCUP PO PRN (07:37)
[2021-10-01] MEDS ORDERED: diphenhydrAMINE CAP 25 MG CAPSULE PO PRN (07:37)
[2021-10-01] MEDS ORDERED: ePHEDrine 50 MG/ML VIAL ONE (07:37)
[2021-10-01] MEDS ORDERED: ONDANSETRON 4 MG/2 ML VIAL IV PRN ×2 (07:37→09:36)
[2021-10-01] MEDS ORDERED: HYDROmorphone 2 MG/1 ML VIAL IV PRN ×2 (07:37)
[2021-10-01] MEDS ORDERED: SEVOFLURANE 1 UNIT/15 MINUTE INH ONE ×2 (07:59→08:43)
[2021-10-01] MEDS ORDERED: TRANEXAMIC ACID 1,000 MG/10 ML VIAL ONE (08:01)
[2021-10-01] MEDS ORDERED: GLYCOPYRROLATE 0.4 MG/2 ML VIAL ONE (08:12)
[2021-10-01] MEDS ORDERED: NEOSTIGMINE 10 MG/10 ML VIAL ONE (08:13)
[2021-10-01 08:38] LABS: Bilirubin,Urine Negative (Negative); Blood, Urine Negative (Negative); Glucose,Urine (UA) Negative (Negative); Ketones,Urine Negative (Negative); Mucus,Urine Occasional /LPF (Occasional); Nitrite,Urine Negative (Negative); Protein,Urine Negative; RBC,Urine 1 /HPF (0-4); Squamous Epithelial Cell,Urine Occasional /HPF (0-10); Urine Appearance CLEAR (Clear); Urine Color Yellow (Yellow); Urine Specific Gravity 1.018 (1.001-1.035); Urine Urobilinogen < 2.0 EU/DL (<2.0)
[2021-10-01] MEDS ORDERED: LACTATED RINGERS 1,000 ML IV ONE (08:54)
[2021-10-01] MEDS ORDERED: SODIUM CHLORIDE 0.9% 100 ML IV ONE (08:54)
[2021-10-01] MEDS: HYDROmorphone 2 MG/1 ML VIAL IV PRN ×4 (09:50→10:17)
[2021-10-01] MEDS: KETOROLAC 30 MG/1 ML VIAL IV SCH ×3 (11:11→23:05)
[2021-10-01] MEDS: ceFAZolin 2,000 MG/50 ML DUPLEX IV SCH (16:06)
[2021-10-01] MEDS: PREGABALIN 75 MG CAPSULE PO SCH (22:07)
[2021-10-01] MEDS: APIXABAN 2.5 MG TABLET PO SCH (22:07)
[2021-10-02] MEDS: ceFAZolin 2,000 MG/50 ML DUPLEX IV SCH (00:27)
[2021-10-02] MEDS: ZALEPLON 5 MG CAPSULE PO PRN ×2 (01:13→21:43)
[2021-10-02] MEDS ORDERED: FONDAPARINUX 2.5 MG/0.5 ML SYRINGE SUBCUT SCH (02:00)
[2021-10-02] MEDS: KETOROLAC 30 MG/1 ML VIAL IV SCH (05:18)
[2021-10-02] MEDS ORDERED: KETOROLAC 30 MG/1 ML VIAL IV SCH (05:30)
[2021-10-02] MEDS: LACTATED RINGERS 1,000 ML IV SCH ×2 (06:15→10:30)
[2021-10-02] MEDS: LEVOTHYROXINE 25 MCG TABLET PO SCH (06:15)
[2021-10-02 06:52] LABS: Basophils % 0.2 % (0.0-0.8); Hematocrit 31.8 VOL% (35.7-47.0); Hemoglobin 10.4 GM/DL (12.0-16.0); Immature Granulocytes % 0.8 %; Immature Granulocytes Absolute 0.16 #; Lymphocytes # 1.7 10*3/uL (1.4-4.0); Lymphocytes % 9.1 % (21.3-54.2); Mean Corpuscular HGB Conc 32.7 GM/DL (32-36); Mean Corpuscular Volume 89.1 FL (87-102); Monocytes % 4.8 % (1.7-12.7); Neutrophils % 85.1 % (38.7-73.9); Platelet Count 201 T/CUMM (130-400); Red Blood Count 3.57 MC/CUMM (3.8-5.5); Red Cell Distribution Width 13.2 % (9.3-17.3); White Blood Count 19.2 T/CUMM (4-12)
[2021-10-02 07:05] LABS: Calcium 8.6 MG/DL (8.5-10.1); Osmolality,Calculated 280.5 MOS/KG (273-304); Potassium 4.2 MMOL/L (3.5-5.1)
[2021-10-02] MEDS: APIXABAN 2.5 MG TABLET PO SCH ×2 (08:12→20:17)
[2021-10-02] MEDS: ESTRADIOL 2 MG TABLET PO SCH (08:12)
[2021-10-02] MEDS: CETIRIZINE 10 MG TABLET PO SCH (08:12)
[2021-10-02] MEDS: PREGABALIN 75 MG CAPSULE PO SCH ×2 (08:12→20:17)
[2021-10-02] MEDS: DOCUSATE SODIUM 100 MG CAPSULE PO SCH ×4 (08:12→20:17)
[2021-10-02] MEDS: PANTOPRAZOLE 40 MG TABLET PO SCH (08:12)
[2021-10-02] MEDS: amLODIPine 5 MG TABLET PO SCH (08:12)
[2021-10-03 04:46] LABS: Basophils # 0.1 10*3/uL (0.0-0.2); Basophils % 0.4 % (0.0-0.8); Eosinophils % 0.3 % (0.00-10.9); Hematocrit 30.2 VOL% (35.7-47.0); Hemoglobin 9.7 GM/DL (12.0-16.0); Immature Granulocytes Absolute 0.14 #; Lymphocytes % 22.4 % (21.3-54.2); Mean Corpuscular HGB Conc 32.1 GM/DL (32-36); Mean Corpuscular Volume 90.4 FL (87-102); Monocytes % 6.5 % (1.7-12.7); Neutrophils % 69.4 % (38.7-73.9); Platelet Count 169 T/CUMM (130-400); Red Blood Count 3.34 MC/CUMM (3.8-5.5); Red Cell Distribution Width 13.7 % (9.3-17.3); White Blood Count 13.6 T/CUMM (4-12)
[2021-10-03] MEDS: LEVOTHYROXINE 25 MCG TABLET PO SCH (05:36)
[2021-10-03] MEDS: APIXABAN 2.5 MG TABLET PO SCH ×2 (08:20→20:42)
[2021-10-03] MEDS: ESTRADIOL 2 MG TABLET PO SCH (08:20)
[2021-10-03] MEDS: PREGABALIN 75 MG CAPSULE PO SCH ×2 (08:20→20:42)
[2021-10-03] MEDS: CETIRIZINE 10 MG TABLET PO SCH (08:20)
[2021-10-03] MEDS: PANTOPRAZOLE 40 MG TABLET PO SCH (08:20)
[2021-10-03] MEDS: DOCUSATE SODIUM 100 MG CAPSULE PO SCH ×2 (08:20→20:42)
[2021-10-03] MEDS: amLODIPine 5 MG TABLET PO SCH (08:20)
[2021-10-03] MEDS: ZALEPLON 5 MG CAPSULE PO PRN (20:42)
[2021-10-04] MEDS: LEVOTHYROXINE 25 MCG TABLET PO SCH (05:34)
[2021-10-04 06:22] LABS: Basophils # 0.1 10*3/uL (0.0-0.2); Basophils % 0.6 % (0.0-0.8); Eosinophils # 0.2 10*3/uL (0.0-0.87); Eosinophils % 1.4 % (0.00-10.9); Hematocrit 28.3 VOL% (35.7-47.0); Immature Granulocytes % 0.8 %; Lymphocytes % 25.3 % (21.3-54.2); Mean Corpuscular HGB Conc 31.8 GM/DL (32-36); Mean Corpuscular Volume 91.9 FL (87-102); Mean Platelet Volume 10.3 FL (9.6-12.0); Monocytes % 8.4 % (1.7-12.7); Neutrophils % 63.5 % (38.7-73.9); Platelet Count 184 T/CUMM (130-400); Red Blood Count 3.08 MC/CUMM (3.8-5.5); Red Cell Distribution Width 13.9 % (9.3-17.3); White Blood Count 11.8 T/CUMM (4-12)
[2021-10-04 07:27] VITALS: BP 131/42
[2021-10-04] MEDS: ESTRADIOL 2 MG TABLET PO SCH (08:29)
[2021-10-04] MEDS: PANTOPRAZOLE 40 MG TABLET PO SCH (08:30)
[2021-10-04] MEDS: APIXABAN 2.5 MG TABLET PO SCH (08:30)
[2021-10-04] MEDS: amLODIPine 5 MG TABLET PO SCH (08:31)
[2021-10-04] MEDS: CETIRIZINE 10 MG TABLET PO SCH (08:31)
[2021-10-04] MEDS: PREGABALIN 75 MG CAPSULE PO SCH (08:31)
[2021-10-04] MEDS: DOCUSATE SODIUM 100 MG CAPSULE PO SCH (09:08)
== END 2021-10-04 11:19 | disposition swing bed (61) | DRG 470 ==
LOC: N.OR 05:34 → N.SDSINP 05:37 → EDSTATUS 07:30 → N.SDSINP 07:37 → N.TELES 18:43 → N.3E 23:30
PROVIDERS: ADMIT Orthopaedic Surgery; ATTEND Orthopaedic Surgery